=== PATIENT | male | born 1965 | race Caucasian/White ===

== ENCOUNTER 2020-06-16 18:56 | Emergency (ER) | payer OTHER ==
[~2020-06-16] VITALS: Ht 172.7 cm; Wt 81.8 kg
[~2020-06-16 18:56] MED LIST: CEPH500C3 PO; GLIP10 PO; HYDR25TA PO; METF1000 PO
[2020-06-16 18:57] VITALS: BP 131/78
== END 2020-06-16 20:36 | disposition left against medical advice (07) ==
LOC: EMS 18:56
DX: L03.011 Cellulitis of right finger (principal); E11.9 Type 2 diabetes mellitus without complications; I10 Essential (primary) hypertension
CPT/HCPCS: 99281; 99283